=== PATIENT | male | born 1995 | race Caucasian/White ===

== ENCOUNTER 2017-04-24 11:40 | Emergency (ER) | payer SELFPAY ==
[2017-04-24 11:53] VITALS: BP 123/73
--- NOTE | 2017-04-24 13:18 | ED Physician Documentation ---
PD HPI UPPER EXT INJURY - Stated complaint Stated Complaint: L HAND INJ - Chief complaint Chief Complaint: Ext Problem - History obtained from History obtained from: Patient - History of Present Illness Location: Left, Hand Type of injury: Blunt / blow Timing - onset: How many days ago (3) Worsened by: Moving, Palpating Associated symptoms: Swelling Similar symptoms before: Has not had sx before - Additonal information Additional information: The patient is a 21-year-old male who punched a wall with his left hand 3 days ago. He presents now with pain and swelling of his left hand, particularly at the distal third metacarpal. He is right-hand dominant. He denies any other injuries. Review of Systems Constitutional: denies: Fever Nose: denies: Congestion Respiratory: denies: Dyspnea Skin: denies: Abrasion (s), Laceration (s) Musculoskeletal: reports: Extremity pain (Left hand) Neurologic: denies: Focal weakness, Numbness PD PAST MEDICAL HISTORY - Past Medical History Past Medical History: No Neuro: None Endocrine/Autoimmune: None - Past Surgical History Past Surgical History: Yes - Present Medications Home Medications: Ambulatory Orders Medication Instructions Recorded Confirmed Naproxen 500 mg PO BID PRN #20 tablet 04/24/17 - Allergies Allergies/Adverse Reactions: Allergies Allergy/AdvReac Type Severity Reaction Status Date / Time No Known Drug Allergies Allergy Verified 04/24/17 11:52 - Social History Does the pt smoke?: No Smoking Status: Never smoker Does the pt drink ETOH?: Yes Does the pt have substance abuse?: No - Immunizations Immunizations are current?: Yes PD ED PE NORMAL - Vitals Vital signs reviewed: Yes (Normal) - General General: Alert and oriented X 3, Well developed/nourished - HEENT HEENT: Atraumatic - Respiratory Respiratory: No respiratory distress - Derm Derm: No rash - Extremities Extremities: Other (There is mild swelling of the left hand, with tenderness to palpation at the third MCP joint. Distal neurovascular is intact. There is no break in the integument.) - Neuro Neuro: Alert and oriented X 3, No motor deficit, No sensory deficit Results - Vitals Vitals: Vital Signs - 24 hr 04/24/17 11:42 Temperature 36 C L Heart Rate 74 Respiratory 16 Rate Blood Pressure 123/73 O2 Saturation 97 Oxygen O2 Source Room air Procedures - Splint (location) Left hand Splint applied by: Physician Type of splint: Fiberglass, Other (Radial gutter) Other: Patient tolerated well, No complications, Neurovascular intact PD MEDICAL DECISION MAKING - ED course Complexity details: reviewed results, re-evaluated patient, considered differential, d/w patient, d/w family ED course: The patient's presentation is significant for fracture of the left third metacarpal. Treatment in the emergency department included application of a radial gutter splint. I discussed his condition with Dr. Mcelroy who is on-call for orthopedics. He will see the patient in clinic in follow-up. I discussed with the patient the expected course of injury, importance of orthopedic follow- up, as well as potentially worrisome signs or symptoms that should prompt reevaluation in the emergency department. Departure - Departure Disposition: 01 Home, Self Care Clinical Impression: Fracture of third metacarpal bone of left hand Qualifiers: Encounter type: initial encounter Fracture type: closed Metacarpal location: neck Fracture alignment: nondisplaced Qualified Code(s): S62.363A - Nondisplaced fracture of neck of third metacarpal bone, left hand, initial encounter for closed fracture Condition: Stable Instructions: ED Cast Care Fiberglass, ED Fx Hand Closed Follow-Up: [facility] [Provider Group] Prescriptions: Naproxen 500 mg PO BID PRN #20 tablet PRN Reason: Pain Comments: Keep your left hand elevated as much of the time as possible. Keep the splint clean and dry. You can use Naprosyn as prescribed, or ibuprofen, up to 800 mg 3 times daily, if needed for pain. Follow-up with orthopedics this week. Call today to schedule an appointment. Return to the emergency department if you develop increasing pain or swelling, or otherwise worsening symptoms. Discharge Date/Time: 04/24/17 13:29
--- NOTE | 2017-04-25 08:57 | XRAY Preliminary Report ---
Exam: XR Hand 3 View LT IMPRESSION: Left third metacarpal fracture. [facility] SITE ID: [id number]
--- NOTE | 2017-04-25 09:00 | XRAY Report ---
EXAM: LEFT HAND RADIOGRAPHY EXAM DATE: 04/24/2017 12:29 PM. CLINICAL HISTORY: Pain swelling. COMPARISON: None. TECHNIQUE: 3 views. FINDINGS: Bones: Third metacarpal fracture at the head neck junction with mild palmar angulation of the distal fracture fragment. No other fractures seen. Joints: No subluxations or significant degenerative change. Soft Tissues: Mild soft tissue swelling. IMPRESSION: Left third metacarpal fracture. [facility] Referring Provider Line: [phone] SITE ID: [id number]
== END 2017-04-24 13:29 | disposition home or self-care (01) ==
LOC: ED 11:40
DX: S62.333A Displaced fracture of neck of third metacarpal bone, left hand, initial encounter for closed fracture (principal); W22.8XXA Striking against or struck by other objects, initial encounter
CPT/HCPCS: 29125; 99283